=== PATIENT | female | born 1965 | race Caucasian/White ===

== ENCOUNTER 2024-01-29 11:42 | Emergency (ER) | payer OTHER, SELFPAY ==
[2024-01-29 11:49] VITALS: BP 204/85; PULSE 53; RESP 16; O2SAT 100; BMI 27.4
[2024-01-29 12:01] VITALS: BP 189/88
--- NOTE | 2024-01-29 12:40 | DI.RAD.S_ITS ---
PROCEDURE: XR SACRUM COCCYX MIN 2V INDICATIONS: upper sacrum pain, fall from ladder 2 ft landed on buttocks. TECHNIQUE: 3 views of the sacrum and coccyx acquired. COMPARISON: None. FINDINGS: Bones: No fractures or dislocations. No suspicious bony lesions. Soft tissues: Visualized bowel gas pattern is normal. No suspicious soft tissue densities. IMPRESSION: No acute osseous abnormality. If pain persists with conservative management, consider repeat x-ray in 10-14 days or cross-sectional imaging. Dictated by: Kan Simomns M.D. on 01/29/2024 at 13:16 Approved by: Kan Simmons M.D. on 01/29/2024 at 13:16
--- NOTE | 2024-01-29 12:40 | DI.RAD.S_ITS ---
PROCEDURE: XR PELVIS 1-2V INDICATIONS: upper sacrum pain, fall from ladder 2 ft landed on buttocks. TECHNIQUE: 1 view(s) of the pelvis acquired. COMPARISON: None. FINDINGS: Bones: No fractures or dislocations. No suspicious bony lesions. Soft tissues: Visualized bowel gas pattern is normal. No suspicious soft tissue calcifications. IMPRESSION: No acute osseous abnormality. If pain persists with conservative management, consider repeat x-ray in 10-14 days or cross-sectional imaging. Dictated by: Kan Simmons M.D. on 01/29/2024 at 13:15 Approved by: Kan Simmons M.D. on 01/29/2024 at 13:16
--- NOTE | 2024-01-29 12:43 | ED_ITS ---
HPI - Back Pain/Injury General Chief Complaint: Back Pain/Injury Stated Complaint: Fell 3ft off ladder, lower back pain Time Seen by Provider: 01/29/24 12:36 Source: patient Mode of arrival: Family Vehicle Limitations: no limitations History of Present Illness HPI Narrative: 58-year-old female with history of prior hysterectomy, patient was on a 3 ft ladder, she was about 2 or 3 ft off the ground she stepped off the 2nd rung onto her foot felt sort of a crunch in her back and then fell backwards onto her buttock. Patient states it feels more almost like pressure than pain she describes it as like upper sacral area. No radiation down her legs. She does note being seated is more uncomfortable than being upright. She does not think that she hit her head she does have little bit of neck discomfort on the right but has full range of motion with no midline pain. Patient states no saddle anesthesia. She did have little bit urinary incontinence but she states that is normal for her. She has had stress incontinence for some time. Patient states no new numbness tingling or weakness. She is more comfortable standing than being seated. Patient was at work when this occurred. She notes that her right neck feels a little bit sore with rotation but nothing midline. She denies any other injuries, no numbness tingling or weakness otherwise. States she had -induced hypertension that resolved after deliveries. She has on no prescription medications. She has had prior hysterectomy. No prior back surgeries. Reported allergy to codeine. No tobacco, no regular alcohol or recreational drugs reported. Related Data Allergies Allergy/AdvReac Type Severity Reaction Status Date / Time codeine AdvReac Verified 01/29/24 11:59 Review of Systems Review of Systems ROS Unobtainable: All systems reviewed & are unremarkable except as noted in HPI and below Patient History Social History Smoking Status: Never smoker Smoking Status: Never smoker Substance Use Type: does not use Exam Narrative Exam Narrative: GEN: Patient appears in mild distress. HEAD: No evidence of trauma, no raccoon/Ha sign. NECK: Patient has some mild right lateral discomfort, painless range of motion, trachea midline Negative Nexus criteria, no midline line tenderness, distracting injury, altered mental status, neuro deficit, recent EtOH. EYES: PERRLA, EOMI ENT: External inspection normal, trachea is midline, Nares are clear, no septal hematoma, no dental or oral injury, airway is normal and with normal occlusion RESP: Chest is nontender and has symmetric movement, no ecchymosis, breath sounds are normal no crackles, wheezes or rales CVS: Heart sounds are normal, no murmur noted, No JVD. ABG/GI: Nontender, soft, normal bowel sounds, no distention, no organomegaly, p elvic rock is negative. NEURO: Oriented AOx3, neuro is grossly intact, sensation and motor is normal all 4 extremities moving, cranial nerves II through XII are intact, GCS is 15 PSYCH: Normal mood and affect SKIN: Intact, warm and dry, no crepitus and without decubitus BACK: No CVA tenderness, no vertebral tenderness, no step-off's, no crepitus, patient has a mild discomfort over the upper sacrum. EXT: Atraumatic, hips are nontender, no pedal edema, normal color and temperature, normal range of motion of extremities with normal tendon exam, 2+ pulses in all four extremities Initial Vital Signs Initial Vital Signs: Vital Signs Pulse Rate 53 L 01/29/24 11:49 Respiratory Rate 16 01/29/24 11:49 Blood Pressure 204/85 H 01/29/24 11:49 Pulse Oximetry 100 01/29/24 11:49 Oxygen Delivery Method Room Air 01/29/24 11:49 Oxygen Flow Rate 98.4 01/29/24 11:49 Course Orders Ordered: ED Orders 01/29/24 12:40 XR pelvis 1-2V Stat XR sacrum coccyx min 2V Stat Discontinued Medications Ketorolac Tromethamine (Ketorolac 30 Mg/Ml Vial) 30 mg IM NOW ONE Stop: 01/29/24 12:41 Last Admin: 01/29/24 13:25 Dose: 30 mg Documented By: Vital Signs Vital signs: Vital Signs - 8 hr 01/29/24 11:49 01/29/24 12:01 Pulse Rate 53 L Respiratory Rate 16 Blood Pressure 204/85 H 189/88 H Pulse Oximetry 100 Oxygen Delivery Method Room Air Oxygen Flow Rate 98.4 MDM - Back Pain/Injury Imaging Data pelvic xray: Radiologist's Impression: Close Sacrum and Coccyx X-Ray (Signed) Kan Simmons - 01/29/24 Pelvis X-Ray (Signed) [facility] 01/29/24 Launch?[address] [address] XRay Report Signed Patient: Jess Pearson MR#: [id number] : 1965 Acct:[id number] Age/Sex: 58 / F Date of Service: 01/29/24 Loc: ED Accession Number: [id number] Procedure: XR pelvis 1-2V Ordering Provider: Irene Aquino D.O. PROCEDURE: XR PELVIS 1-2V INDICATIONS: upper sacrum pain, fall from ladder 2 ft landed on buttocks. TECHNIQUE: 1 view(s) of the pelvis acquired. COMPARISON: None. FINDINGS: Bones: No fractures or dislocations. No suspicious bony lesions. Soft tissues: Visualized bowel gas pattern is normal. No suspicious soft tissue calcifications. IMPRESSION: No acute osseous abnormality. If pain persists with conservative management, consider repeat x-ray in 10-14 days or cross-sectional imaging. Dictated by: Kan Simmons M.D. on 01/29/2024 at 13:15 Approved by: Kan Simmons M.D. on 01/29/2024 at 13:16 sacrum xray: Radiologist's Impression: Close Sacrum and Coccyx X-Ray (Signed) [facility] 01/29/24 Pelvis X-Ray (Signed) [facility] 01/29/24 Launch?[address] [address] XRay Report Signed Patient: Jess Pearson MR#: [id number] : 1965 Acct:[id number] Age/Sex: 58 / F Date of Service: 01/29/24 Loc: ED Accession Number: [id number] Procedure: XR sacrum coccyx min 2V Ordering Provider: Irene Aquino D.O. PROCEDURE: XR SACRUM COCCYX MIN 2V INDICATIONS: upper sacrum pain, fall from ladder 2 ft landed on buttocks. TECHNIQUE: 3 views of the sacrum and coccyx acquired. COMPARISON: None. FINDINGS: Bones: No fractures or dislocations. No suspicious bony lesions. Soft tissues: Visualized bowel gas pattern is normal. No suspicious soft tissue densities. IMPRESSION: No acute osseous abnormality. If pain persists with conservative management, consider repeat x-ray in 10-14 days or cross-sectional imaging. Dictated by: Kan Simmons M.D. on 01/29/2024 at 13:16 Approved by: Kan Simmons M.D. on 01/29/2024 at 13:16 [facility] Narrative Medical decision making narrative: 58-year-old female who had a fall stepping back off a ladder stepped on her foot felt crunch in her lower back sacral area and then fell backwards onto her buttocks. Patient describes and has tenderness over the upper sacrum, no real L-spine tenderness. Patient has normal range of motion. Did note some incontinence when she fell but states she normally has stress incontinence that is not new for her. No new saddle anesthesia no new weakness numbness or other changes. Patient was given Toradol. She notes she is much more comfortable ambulating than being seated. X-ray imaging shows acute bony changes, no fractures no suspicious bony lesions on pelvic x-ray or sacrum. Patient received a dose IM Toradol still has some discomfort but does feel much better. Discussed return precautions, signs and symptoms to watch for, red flag symptoms. Discharge Plan Departure Patient Disposition: Home Clinical Impression: Sacral back pain, Cervical strain Fall Qualifiers: Encounter type: initial encounter Qualified Code(s): W19.XXXA - Unspecified fall, initial encounter Instructions: DI for Low Back Pain Activity Restrictions/Additional Instructions: Please follow-up with [facility] in the next 7-10 days for recheck if your symptoms are not improving. You may take Tylenol up to a 1000 mg every 6 hours as needed and/or ibuprofen up to 600 mg every 6 hours as needed for pain. Please return for fevers, new or worsening abdominal back or flank pain, new loss of bowel or bladder control, new numbness tingling or weakness in your extremities, severe headaches, new neck or back pain, persistent vomiting or other new or concerning changes. Referrals: Miscellaneous,[facility] [Primary Care Provider] - Stand Alone Forms: Patient Portal/API
[2024-01-29] MEDS: KETOROLAC 30 MG/ML VIAL IM (13:25)
== END 2024-01-29 13:55 | disposition home or self-care (01) ==
PROVIDERS: Emergency Provider Emergency Medicine
DX: M54.50 Low back pain, unspecified (principal); S16.1XXA Strain of muscle, fascia and tendon at neck level, initial encounter; W11.XXXA Fall on and from ladder, initial encounter
CPT/HCPCS: 72170; 72220; 96372; 99283; J1885

== ENCOUNTER → 2024-04-13 09:18 | Outpatient (CLI) | payer OTHER, SELFPAY | PROVIDERS: Referring Provider Student in an Organized Health Care Education/Training Program; Visit Provider Student in an Organized Health Care Education/Training Program | DX: R10.9 Unspecified abdominal pain (principal) | CPT/HCPCS: 87086 ==